=== PATIENT | female | born 1990 | race Caucasian/White ===

== ENCOUNTER 2020-03-01 17:22 | Emergency (ER) | payer MEDICAID ==
[~2020-03-01] VITALS: Ht 144.8 cm; Wt 68.0 kg
[2020-03-01 17:29] VITALS: BP 135/75
[2020-03-01] MEDS ORDERED: NACL 0.9% 1,000 ML IV SCH (18:07)
[2020-03-01] MEDS ORDERED: cefTRIAXone 1,000 MG in DEXT 5% MINI-BAG PLUS 50 ML IV ONE (18:10)
[2020-03-01] MEDS ORDERED: ONDANSETRON 4 MG/2 ML VIAL IVP ONE ×2 (18:10→19:55)
[2020-03-01] MEDS ORDERED: KETOROLAC 30 MG/ML VIAL IVP ONE (18:10)
[2020-03-01] MEDS ORDERED: cefTRIAXone 1,000 MG VIAL ONE (18:13)
[2020-03-01 18:45] LABS: BASOPHILS % (AUTO) 0.2 % (0.0-2.0); EOSINOPHILS % (AUTO) 0.1 % (0.0-4.0); HEMATOCRIT 42.7 % (36-48); HEMOGLOBIN 14.5 g/dL (12.0-16.0); LYMPHOCYTES # (AUTO) 1.3 K/uL (2.5-16.5); LYMPHOCYTES % (AUTO) 17.5 % (20.5-51.1); MEAN CORPUSCULAR HEMOGLOBIN 29 pg (27-31); MEAN CORPUSCULAR HGB CONC 34 g/dL (33-37); MEAN CORPUSCULAR VOLUME 84.9 fL (80-94); MONOCYTES # (AUTO) 0.6 K/uL (0.8-1.0); MONOCYTES % (AUTO) 8.3 % (1.7-9.3); NEUTROPHILS # (AUTO) 5.6 K/uL (1.8-7.7); NEUTROPHILS % (AUTO) 73.9 % (42.2-75.2); PLATELET COUNT (AUTO) 273 K/uL (140-450); RED BLOOD CELL COUNT(AUTO) 5.03 MIL/uL (4.20-5.40); WHITE BLOOD COUNT (AUTO) 7.5 K/uL (4.8-10.8)
[2020-03-01 18:59] LABS: ALBUMIN 4.5 g/dL (3.4-5.0); ANION GAP 15.9 (8-16); CARBON DIOXIDE 26.1 mmol/L (21-32); CREATININE 0.7 mg/dL (0.6-1.3); TOTAL BILIRUBIN 0.5 mg/dL (0.0-1.0)
[2020-03-01 19:28] LABS: APPEARANCE,URINE CLEAR (CLEAR); BILIRUBIN,URINE 1+ (NEGATIVE); BLOOD, URINE 2+ (NEGATIVE); COLOR,URINE YELLOW (YELLOW); LEUKOCYTE ESTERASE ,URINE NEGATIVE (NEGATIVE); NITRITE, URINE POSITIVE (NEGATIVE); UGLUCOSE NEGATIVE (NEGATIVE)
[2020-03-01] MEDS ORDERED: POTASSIUM CHLORIDE 10 MEQ TABER PO ONE (19:35)
[2020-03-01 19:48] LABS: RBC,URINE 11-20 (MOD) /HPF (0-5)
[2020-03-01 19:49] LABS: URINE AMORPHOUS URATE 4+ /HPF (None Seen); WBC,URINE 0-5 /HPF (0-5)
[2020-03-01] MEDS ORDERED: NACL 0.9% 1,000 ML IV ONE (19:55)
[2020-03-01] MEDS ORDERED: MORPHINE SULFATE 2 MG/ML SYR IVP ONE (19:55)
[2020-03-01 21:41] VITALS: BP 133/80
== END 2020-03-01 21:41 | disposition home or self-care (01) ==
LOC: MED 17:22
DX: N39.0 Urinary tract infection, site not specified (principal); R10.0 Acute abdomen; F17.210 Nicotine dependence, cigarettes, uncomplicated; Z98.890 Other specified postprocedural states
CPT/HCPCS: 36415; 74176; 80053; 81001; 81025; 83605; 83690; 85025; 87040; 87086; 93005; 96361; 96365; 96375; 96376; 99285; J0696; J1885; J2270; J2405; J7030; J7060